=== PATIENT | female | born 1995 | race African-American/Black ===

== ENCOUNTER 2022-11-03 07:40 | Inpatient (IN) | payer OTHER ==
[2022-11-03] MEDS: DEXTROSE 5%-LACTATED RINGERS 1,000 ML IV SCH (08:10)
[2022-11-03] MEDS ORDERED: OXYTOCIN 10 UNITS/ML VIAL ONE (09:07)
[2022-11-03] MEDS ORDERED: OXYTOCIN 20 UNITS in 0.9% NS 20 UNIT/1,000 ML INFUS.BAG IV ONE (09:07)
[2022-11-03 09:11] LABS: BASO % 0.1 % (0-2.0); EOS % 0.1 % (0-4.5); HEMATOCRIT 34.9 % (32.4-45.2); HEMOGLOBIN 11.2 GM/dL (10.7-15.3); LYMPH % 6.9 % (8-40); MCH 23.5 pg (25.7-33.7); MCHC 32.2 g/dl (32.0-36.0); MEAN CELL VOLUME 72.9 fl (80-96); MEAN PLT VOLUME 8.1 fl (7.5-11.1); MONO % 5.3 % (3.8-10.2); NEUT % 87.6 % (42.8-82.8); PLATELET COUNT 242 10^3/uL (134-434); RBC 4.79 M/mm3 (3.60-5.2); WHITE BLOOD COUNT 15.2 K/mm3 (4.0-10.0)
[2022-11-03 09:32] LABS: CALCIUM 8.9 mg/dL (8.5-10.1)
[2022-11-03 09:33] LABS: ACTIVATED PTT 27.6 SECONDS (25.2-36.5); BLOOD UREA NITROGEN 9.2 mg/dL (7-18); INR 0.97 (0.83-1.09); PROTHROMBIN TIME (PATIENT) 11.2 SEC (9.7-13.0)
[2022-11-03 09:36] LABS: CREATININE 0.7 mg/dL (0.55-1.3)
[2022-11-03 09:39] VITALS: BMI 36.3
[2022-11-03] MEDS ORDERED: BISACODYL 10 MG SUPP.RECT RC PRN (10:08)
[2022-11-03] MEDS ORDERED: oxyCODONE HCL 5 MG TABLET PO PRN (10:08)
[2022-11-03] MEDS ORDERED: IBUPROFEN 600 MG TABLET (FP) PO PRN (10:08)
[2022-11-03] MEDS ORDERED: METHYLERGONOVINE MALEATE 0.2 MG/1 ML AMP IM PRN (10:08)
[2022-11-03] MEDS ORDERED: BENZOCAINE 20% 57 GM BOTTLE TP PRN (10:08)
[2022-11-03] MEDS ORDERED: WITCH HAZEL 50% (TUCKS) 40 PAD/JAR PAD TP PRN (10:08)
[2022-11-03] MEDS ORDERED: BENZOCAINE 28 GM HEMORRHOIDAL OINTMENT TP PRN (10:08)
[2022-11-03] MEDS ORDERED: ACETAMINOPHEN 325 MG TABLET (FP) PO PRN (10:08)
[2022-11-03] MEDS ORDERED: OXYTOCIN 20 UNITS in 0.9% NS 20 UNIT/1,000 ML INFUS.BAG IV SCH (10:15)
[2022-11-03] MEDS ORDERED: OXYTOCIN 10 UNITS/ML VIAL IM ONE (11:45)
[2022-11-03] MEDS ORDERED: IBUPROFEN 600 MG TABLET (FP) PO ONE (12:33)
[2022-11-03 22:56] VITALS: RESP 18
[2022-11-04 08:53] LABS: BASO % 0.2 % (0-2.0); EOS % 0.6 % (0-4.5); HEMATOCRIT 30.9 % (32.4-45.2); HEMOGLOBIN 10.1 GM/dL (10.7-15.3); LYMPH % 14.7 % (8-40); MCHC 32.8 g/dl (32.0-36.0); MEAN CELL VOLUME 73.1 fl (80-96); MONO % 9.1 % (3.8-10.2); NEUT % 75.4 % (42.8-82.8); PLATELET COUNT 226 10^3/uL (134-434); RBC 4.23 M/mm3 (3.60-5.2); RDW 18.1 % (11.6-15.6); WHITE BLOOD COUNT 13.4 K/mm3 (4.0-10.0)
[2022-11-04] MEDS: DEXTROSE 5%-LACTATED RINGERS 1,000 ML IV SCH (20:09)
[2022-11-04] MEDS ORDERED: SENNOSIDES/DOCUSATE COMBO (SENNA PLUS) TABLET (UD) PO PRN (22:00)
[2022-11-05 09:27] VITALS: BP 123/84; PULSE 74; TEMP 99.6
== END 2022-11-05 12:53 | disposition home or self-care (01) | DRG 560 ==
LOC: JLDR 07:40 → J3W 13:15
PROVIDERS: ADMIT Specialist; ATTEND Specialist
PROC: 10E0XZZ Delivery of Products of Conception, External Approach (ICD-10-PCS; principal; 2022-11-03)
PROC: 0HQ9XZZ Repair Perineum Skin, External Approach (ICD-10-PCS; 2022-11-03)
DX: O70.0 First degree perineal laceration during delivery (principal); Z3A.39 39 weeks gestation of pregnancy; Z37.0 Single live birth
CPT/HCPCS: 36415; 80048; 85025; 85610; 85730; 86780; 86850; 86900; 86901; C9803-CS; U0003; U0005